=== PATIENT | male | born 1995 | race Asian ===

== ENCOUNTER 2016-07-22 21:20 | Emergency (ER) | payer OTHER ==
[~2016-07-22 21:20] MED LIST: No meds at discharge
== END 2016-07-22 23:00 | disposition left against medical advice (07) ==
LOC: M ED 21:20
DX: R22.2 Localized swelling, mass and lump, trunk (principal); Z53.21 Procedure and treatment not carried out due to patient leaving prior to being seen by health care provider

== ENCOUNTER → 2016-10-02 | Outpatient (CLI) | payer OTHER ==
--- NOTE | 2016-10-02 14:46 | REP ---
RIGHT BREAST ULTRASOUND: CLINICAL HISTORY: Palpable lump 11 o'clock right breast for 2 months with tenderness. Real-time sonographic evaluation of the right breast performed in the region of the reported palpable abnormality. This is close to the nipple. There appears to be mild gynecomastia without a suspicious cystic or solid mass. IMPRESSION: ACR 2 benign. Palpable abnormality appears to correspond to an area of gynecomastia in the retroareolar region. No suspicious mass is seen. Clinical correlation and followup is recommended. Signed by Jose Munoz MD 10/03/2016 05:14 P
== END ==
LOC: M RAD 11:18
PROVIDERS: ATTEND Physician Assistant
DX: N62 Hypertrophy of breast (principal)